=== PATIENT | female | born 1990 | race Hispanic/Latino ===

== ENCOUNTER 2016-09-07 01:26 | Emergency (ER) | payer OTHER ==
[2016-09-07 01:46] VITALS: BP 145/90; PULSE 95; RESP 18; TEMP 98.1; O2SAT 100
[2016-09-07] MEDS ORDERED: Sodium Chloride 0.9% 1,000 ML IV STA (02:03)
--- NOTE | 2016-09-07 02:14 | ED PDOC ---
HPI: Female Pain Time Seen by Provider: 09/07/16 01:36 Chief Complaint (Nursing): Female Genitourinary Chief Complaint (Provider): vaginal bleeding History Per: Patient History/Exam Limitations: no limitations Onset/Duration Of Symptoms: Hrs (8) Current Symptoms Are (Timing): Still Present Additional History Per: Patient Additional Complaint(s): 26 y/o female presents for eval of heavy vaginal bleeding x 8 hours. Associated clots, feeling lightheaded. Patient states she had Leep procedure done 08/25 by her Rn Pool in [place] for persistent abnormal paps (NUSRAT: HPV 16, HPV 18) and has not had bleeding until tonight. Patient also notes stopping her control the day of the procedure. LMP approx 3 weeks ago. Denies fever, headache, dizziness, nausea/vomiting, chest pain, shortness of breath, palpitations, pelvic pain, dysuria, hematuria. Patient has follow up appointment tomorrow. Past Medical History Reviewed: Historical Data, Nursing Documentation, Vital Signs Vital Signs: Last Vital Signs Temp 98.1 F 09/07/16 01:43 Pulse 95 H 09/07/16 01:43 Resp 18 09/07/16 01:43 BP 145/90 09/07/16 01:43 Pulse Ox 100 09/07/16 01:43 - Medical History PMH: No Chronic Diseases - Family History Family History: States: Unknown Family Hx - Allergies Allergies/Adverse Reactions: Allergies Allergy/AdvReac Type Severity Reaction Status Date / Time No Known Allergies Allergy Verified 09/07/16 01:42 Review of Systems ROS Statement: Except As Marked, All Systems Reviewed And Found Negative Genitourinary Female: Positive for: Vaginal Bleeding Physical Exam - Reviewed Nursing Documentation Reviewed: Yes Vital Signs Reviewed: Yes - Physical Exam Appears: Positive for: Well, Non-toxic, No Acute Distress Head Exam: Positive for: ATRAUMATIC, NORMAL INSPECTION, NORMOCEPHALIC Skin: Positive for: Normal Color Cardiovascular/Chest: Positive for: Regular Rate, Rhythm Respiratory: Positive for: Normal Breath Sounds Gastrointestinal/Abdominal: Positive for: Bowel Sounds, Soft, Tenderness (mild suprapubic, rlq discomfort) Pelvic Exam: Positive for: External Exam Normal, No Cerv. Motion Tender, Active Bleeding (oozing appears to be coming from cervical os then trickles down to inferior aspect leep site; leep site is surrounding os, with granuloma superior aspect), Other (exam chaperoned by Brenda MUNOZ, viewed with Dr. San) Extremity: Positive for: Normal ROM Neurologic/Psych: Positive for: Alert, Oriented - Laboratory Results Result Diagrams: 09/07/16 02:37 09/07/16 02:37 - ECG O2 Sat by Pulse Oximetry: 100 - Progress ED Course And Treament: labs, urine, u/s EXAM: US Pelvis, Transvaginal CLINICAL HISTORY: 26 years old, female; Signs and symptoms; Other: Heavy bleeding; Additional info : Heavy vaginal bleeding; Had leep 08/25 TECHNIQUE: Real-time transvaginal pelvic ultrasound (complete) with image documentation. Transvaginal imaging was used for better evaluation of the endometrium and adnexa. COMPARISON: No relevant prior studies available. FINDINGS: Uterus/cervix: Unremarkable in echogenicity and size measuring 7.1 x 3.1 x 4.5 cm. Normal endometrial stripe thickness, measuring 8-8.5 mm. No myometrial mass. Right ovary: Unremarkable in echogenicity and size measuring 2.9 x 2.1 x 1.9 cm. No mass. Normal blood flow. Left ovary: Unremarkable in size measuring 3.5 x 2.4 x 2.4 cm. An anechoic focus is detected within the left ovary measuring 16 mm in greatest dimension, statistically a cyst. No solid mass. Normal blood flow. Free fluid: No free fluid. IMPRESSION: Simple cyst within the left ovary. Otherwise, unremarkable sonographic evaluation of the pelvis, as detailed above. Case discussed with Dr. Sanz, Nurse Private Duty on-call; states no further intervention in ED needed at this time, could prescribe OCPs or Provera and follow up outpatient. Patient educated on findings, discharged with instructions to call Rn Pool this am to change appt to today instead of tomorrow. Return to ED for worsening/concerning symptoms. Disposition - Clinical Impression Clinical Impression: Vaginal bleeding - Patient ED Disposition Is Patient to be Admitted: No Counseled Patient/Family Regarding: Studies Performed, Diagnosis, Need For Followup - Disposition Disposition: Routine/Home Disposition Time: 05:04 Condition: STABLE Additional Instructions: Call Rn Pool this morning. Return to ED for worsening/concerning symptoms. Forms: [facility] ED School/Work Excuse
[2016-09-07 02:37] LABS: BASO % 0.4 % (0.0-2.0); EOS # 0.1 K/uL (0.0-0.7); EOS % 0.4 % (0.0-4.0); HEMOGLOBIN 12.6 g/dL (12.0-16.0); LYMPH # 3.8 K/uL (1.0-4.3); LYMPH % 31.6 % (20.0-40.0); MEAN CELL VOLUME 91.2 fl (81.0-99.0); MEAN CORPUSCULAR HEMOGLOBIN 30.9 pg (27.0-31.0); MEAN CORPUSCULAR HGB CONC 33.8 g/dL (33.0-37.0); MEAN PLATELET VOLUME 6.7 fl (7.2-11.7); MONO # 0.8 K/uL (0.0-0.8); MONO % 6.5 % (0.0-10.0); NEUT # 7.3 K/uL (1.8-7.0); NEUT % 61.1 % (50.0-75.0); RBC 4.08 Mil/uL (3.80-5.20); WHITE BLOOD COUNT 11.9 K/uL (4.8-10.8)
[2016-09-07 02:51] LABS: ALB/GLOB RATIO 1.4 (1.0-2.1); ALBUMIN 4.4 g/dL (3.5-5.0); ALT/SGPT 39 U/L (9-52); AST/SGOT 32 U/L (14-36); BLOOD UREA NITROGEN 12 mg/dl (7-17); CALCIUM 9.2 mg/dL (8.4-10.2); GFR AFRICAN-AMERICAN > 60; GFR NON-AFRICAN AMERICAN > 60
[2016-09-07 04:32] LABS: URINE BILIRUBIN NEGATIVE (NEGATIVE); URINE BLOOD LARGE (NEGATIVE); URINE CLARITY CLOUDY (Clear); URINE COLOR RED (YELLOW); URINE GLUCOSE (UA) NEG (Normal); URINE LEUKOCYTE ESTERASE NEG Leu/uL (Negative); URINE NITRATE NEGATIVE (NEGATIVE); URINE PROTEIN 100 mg/dL (NEGATIVE); URINE UROBILINOGEN 0.2-1.0 mg/dL (0.2-1.0); WBC CLUMPS MANY /hpf
--- NOTE | 2016-09-07 08:36 | US ---
HISTORY: heavy vaginal bleeding; had leep 08/25. LMP 09/06/2016 COMPARISON: None available. TECHNIQUE: Transvaginal only. Real -time technique with 2D, duplex and color Doppler FINDINGS: UTERUS: Measures 3.1 x 4.5 x 7.1 cm. Normal in size and appearance. No fibroid or other mass lesion seen. ENDOMETRIUM: Measures 8.5 mm in diameter. No ultrasound findings to suggest gestational sac, fluid, debris, mass or polyp or other pathologic process within the endometrium. CERVIX: No cervical abnormality identified. RIGHT OVARY: Measures 2.1 x 1.9 x 2.9 cm. No solid mass. Normal flow. Multiple subcentimeter follicles. LEFT OVARY: Measures 2.4 x 2.4 x 3.5 cm. No solid mass. Normal flow. Solitary dominant cyst 1.6 cm in diameter. Multiple subcentimeter follicles. FREE FLUID: No significant free fluid noted. OTHER FINDINGS: None. IMPRESSION: No acute findings related to/accounting for the clinical presentation.Additional benign and/or incidental findings described above.
== END 2016-09-07 05:11 | disposition home or self-care (01) ==
LOC: H.ER 01:26
DX: N93.9 Abnormal uterine and vaginal bleeding, unspecified (principal); N83.292 Other ovarian cyst, left side